=== PATIENT | female | born 1995 | race Caucasian/White ===

== ENCOUNTER 2020-01-02 11:12 | Outpatient (CLI) | payer BC, SELFPAY ==
--- NOTE | ~2020-01-02 | US_ITS ---
EXAMINATION: US pelvic complete w TV EXAM DATE: 01/02/2020 12:14 INDICATION: Cyst on left ovary. Follow-up. TECHNIQUE: Pelvic transabdominal and transvaginal sonogram was performed. There are multiple graysca le and Doppler images available for interpretation. Comparison is made to prior examination from 11/07. FINDINGS: Uterus measures 7.1 x 4.2 x 6.8 cm, and is morphologically normal. Endometrial stripe ivory sures 9 mm, within normal limits. There is no free pelvic fluid. Right adnexa: The ovary measures 2.3 x 1.7 x 1.6 cm and is morphologically normal. Ovarian vascular f low confirmed. Left adnexa: The ovary measures 2.8 x 1.9 x 2.4 cm and is morphologically normal. Previously seen sma ll complex cystic structure was likely hemorrhagic cyst, no longer identified. Ovarian vascular flow confirmed. IMPRESSION: 1. Unremarkable pelvic ultrasound exam. Reviewed, dictated and finalized at location A. BUILDER
== END 2020-01-02 11:13 | disposition home or self-care (01) ==
LOC: ANHIMG 11:14
PROVIDERS: PCP Physician Assistant; Visit Provider Obstetrics & Gynecology
DX: N83.209 Unspecified ovarian cyst, unspecified side (principal)
CPT/HCPCS: 76830; 76856

== ENCOUNTER 2021-02-15 23:05 | Emergency (ER) | payer BC, SELFPAY ==
--- NOTE | ~2021-02-15 | CT_ITS ---
EXAMINATION: CTA chest PE protocol DATE: 02/16/2021 03:55 INDICATION: Chest pain. Elevated d-dimer. TECHNIQUE: Computed tomography (CT) pulmonary angiogram of the chest was performed with 100 mL Omnipa que-350 intravenous contrast. Additional 3D reconstructions utilizing coronal maximum intensity proje ction (MIP) were performed. The dose-length product was 157.56 mGy-cm. COMPARISON: None FINDINGS: Excellent contrast opacification of the pulmonary arteries. There is mild streak artifact from dense contrast in the superior vena cava and right atrium. Mild scattered respiratory motion artifact. Over all this does not limit evaluation which demonstrates no pulmonary embolism. Lungs are clear with no pneumonia or other pulmonary infiltrates, pulmonary edema, pleural effusion or pneumothorax. Heart si ze is normal. No pericardial effusion. There are small thickening along the mid to distal esophagus s uggestive of nonspecific esophagitis. No pathologically enlarged thoracic lymphadenopathy. Visualized upper abdomen is unremarkable. Mild S-shaped curvature of the thoracolumbar spine. IMPRESSION: 1. No pulmonary embolism or other acute cardiopulmonary disease. Reviewed, dictated and finalized at location A.
--- NOTE | ~2021-02-15 | XR_ITS ---
XR chest 2V DATE: 02/15/2021 23:59 INDICATION: Midline chest pain TECHNIQUE: PA and lateral views COMPARISON: 05/21/2017 two-view chest FINDINGS: Bilateral hyperinflation. No pulmonary infiltrate or consolidation, pleural effusion or pul monary vascular congestion or pneumothorax. Normal heart size. No hilar or mediastinal enlargement. Diffuse osteopenia. IMPRESSION: Bilateral hyperinflation; no active cardiopulmonary disease Reviewed, dictated and finalized at location A.
[2021-02-15 23:08] VITALS: BP 135/85; PULSE 113; RESP 20; TEMP 36.6; O2SAT 100
--- NOTE | 2021-02-15 23:12 | ECG_ITS ---
Measurements Intervals [place] Rate: 102 P: 79 [place]: 114 QRS: 89 QRSD: 88 T: -40 QT: 342 QTc: 446 Interpretive Statements SINUS TACHYCARDIA WITH SHORT [place] INTERVAL INCOMPLETE RIGHT BUNDLE BRANCH BLOCK BORDERLINE ST-T WAVE ABNORMALITY- ANTEROLAT/INF LEADS BASELINE ARTIFACT- I, II, III, AVR, AVL, AVF, V1 BORDERLINE ECG Electronically Signed On 02-16-2021 7:36:54 CDT by Fabiano Suggs D.O.
[2021-02-15 23:28] LABS: Basophils Absolute Auto 0.1 K/mm3 (0.0-0.1); Basophils Percent Auto 1.1 % (0.2-1.2); Eosinophils Absolute Auto 0.3 K/mm3 (0-0.3); Eosinophils Percent Auto 3.9 % (0-4.4); Hematocrit 40.5 % (37.0-47.0); Hemoglobin 14.1 g/dL (12.0-15.0); Immature Granulocyte Absolute 0.01 K/mm3 (0.00-0.031); Immature Granulocyte Percent A 0.2 % (0-0.5); Lymphocytes Absolute Auto 2.39 K/mm3 (0.9-3.2); Mean Corpuscular HGB Conc 34.8 g/dl (32-36); Mean Corpuscular Hemoglobin 31.8 pg (26-34); Mean Corpuscular Volume 91.4 fl (80-100); Mean Platelet Volume 9.8 fl (7.4-10.4); Monocytes Absolute Auto 0.5 K/mm3 (0.1-0.6); Monocytes Percent Auto 7.9 % (2.6-8.5); Neutrophils Absolute Auto 3.2 K/mm3 (1.3-6.7); Neutrophils Percent Auto 49.9 % (45.5-73.1); Platelet Count Result 291 k/mm3 (150-375); Red Blood Count 4.43 M/mm3 (4.2-5.4); Red Cell Distribution Width 11.8 % (11.5-14.5); White Blood Count 6.5 K/mm3 (4.5-10.0)
[2021-02-15 23:39] LABS: Prothrombin Time 13.9 Seconds (11.1-14.7)
[2021-02-15 23:40] LABS: Partial Thromboplastin Time 31.5 SECONDS (22.3-36.8)
[2021-02-15 23:42] LABS: Anion Gap 11 mmol/L (8-16); Blood Urea Nitrogen 13 mg/dL (7-17); Calcium 9.6 mg/dL (8.4-10.2); Carbon Dioxide 22 mmol/L (22-30); Chloride 111 mmol/L (98-107); Estimated CRCL calculation 82 ml/min; Estimated Glomerular Filt Rate > 60; Glucose 109 mg/dL (65-105); Sodium 144 mmol/L (137-145)
[2021-02-15 23:53] LABS: Troponin I < 0.012 ng/mL (0.000-0.034)
--- NOTE | 2021-02-16 00:37 | ED.CHESTPAIN ---
HPI - Chest Pain General Chief Complaint: Chest Pain Stated Complaint: Chest pain, migraine Time Seen by Provider: 02/16/21 00:26 Source: RN notes reviewed History of Present Illness HPI narrative: Patient presents to emergency department from home for multiple complaints. Patient states that she was laying in bed this evening approximately 9 PM when she began to feel like her heart was racing. She states she felt lightheaded with this episode. Patient states she does have a history of heart palpitations which she does not feel lightheaded with these normally. Patient also states that she has had a migraine headache all day with throbbing on the right side of her head she states she took her prescription medication at home with no relief states she is taken no Tylenol ibuprofen she denies any vision changes chest pain shortness of breath nausea vomiting or any other symptoms Related Data Home Medications Medication Instructions Recorded Confirmed topiramate 50 mg PO BID 11/28/19 11/28/19 Allergies Allergy/AdvReac Type Severity Reaction Status Date / Time clavulanic acid Allergy Mild HIVES Verified 02/15/21 23:12 Cephalosporins Allergy Unknown HIVES Verified 02/15/21 23:12 codeine Allergy Unknown HIVES Verified 02/15/21 23:12 Penicillins Allergy Unknown HIVES Verified 02/15/21 23:12 Sulfa (Sulfonamide Allergy Unknown HIVES Verified 02/15/21 23:12 Antibiotics) PRIMSOL Allergy Mild HIVES Uncoded 11/28/19 09:07 BETALACTAMASEIN Allergy Unknown HIVES Uncoded 11/28/19 09:07 Review of Systems Review of Systems: Narrative: Gen.: Denies fevers or chills Eyes: Denies eye pain or visual change ENT: Denies congestion Respiratory: Denies shortness of breath or cough CV: Denies chest pain or palpitations GI: Denies abdominal pain nausea, emesis or diarrhea denies chance of Musculoskeletal: Denies back pain or muscle pain Neuro: Denies numbness, tingling, weakness or focal weakness Skin: Denies rash Except as documented, all other systems reviewed and negative [facility] Past Medical History Medical History (Updated 02/16/21 @ 04:29 by Carlos Lauren DO) Anxiety Depression Migraines Osteoporosis UTI (urinary tract infection) Surgical History Surgical History Hx of sinus surgery [place] teeth removed Family History Family History Grandparent Hypertension Cerebrovascular accident Social History Social History Smoking status: Never smoker Alcohol intake: never Gender identity (if verbalized by the patient): Female Exam Narrative: Exam Narrative: APPEARANCE: No acute distress, nontoxic, resting in bed EYES: EOMI, PERRL HEENT: Normocephalic, atraumatic, OMM RESPIRATORY: No respiratory distress Clear to auscultation bilaterally with no rhonchi wheezing or rales. CARDIOVASCULAR: Regular rate and rhythm without murmurs rubs or gallops. ABDOMINAL: Soft, nontender, nondistended, no rebound or guarding MUSCULOSKELETAl: Moves all extremities. No clubbing, cyanosis or edema. NEURO: Awake and alert x 4 Following commands, speech normal, no focal deficits SKIN:: Warm, dry. No rashes lesions or abrasions PSYCHIATRIC: Normal affect/mood, Course Course Emergency Course: Patient remained on awake overnight monitor throughout stay in ED with no arrhythmias noted Patient states headache is resolved at this time Discussed with patient results of workup and diagnosis. Discussed need for follow-up with primary care, proper use of medication, and reasons to return to the emergency department. Patient understands and agrees to current treatment plan Vital Signs Vital signs: Vital Signs Temperature 97.8 F 02/15/21 23:08 Pulse Rate 113 H 02/15/21 23:08 Respiratory Rate 20 02/15/21 23:08 Blood Pressure 135/85 02/15/21 23:08 Pulse Oximetry 1
[2021-02-16 00:50] VITALS: BP 107/70; PULSE 89; RESP 18; O2SAT 100
[2021-02-16] MEDS: SODIUM CHLORIDE 0.9% IV 1,000 ML 999 ML IV CONT (01:27)
[2021-02-16] MEDS: diphenhydrAMINE HCl INJ 50 MG/ML VIAL 25 MG IV PUSH (01:28)
[2021-02-16] MEDS: KETOROLAC 30 MG/ML VIAL (*BKC) IV PUSH (01:29)
[2021-02-16] MEDS: ONDANSETRON INJ 4 MG/2 ML VIAL IV PUSH (01:30)
[2021-02-16 02:46] LABS: D Dimer 0.49 ug/mL (<0.48)
[2021-02-16 02:56] LABS: Troponin I < 0.012 ng/mL (0.000-0.034)
[2021-02-16 05:50] VITALS: BP 105/62; PULSE 92; RESP 18; O2SAT 100
== END 2021-02-16 05:54 | disposition home or self-care (01) ==
PROVIDERS: Emergency Provider Emergency Medicine; PCP Physician Assistant
DX: R00.2 Palpitations (principal); G43.909 Migraine, unspecified, not intractable, without status migrainosus; M81.0 Age-related osteoporosis without current pathological fracture; Z87.440 Personal history of urinary (tract) infections; I45.10 Unspecified right bundle-branch block; R94.31 Abnormal electrocardiogram [ECG] [EKG]
CPT/HCPCS: 36415; 71046; 71275; 80048; 81025; 84484; 85025; 85380; 85610; 85730; 93005; 96361; 96374; 96375; 99284; J1200; J1885; J2405; J7030; Q9967

== ENCOUNTER → 2021-02-22 09:15 | Outpatient (CLI) | payer BC, SELFPAY ==
--- NOTE | ~2021-02-22 | CT_ITS ---
EXAMINATION: CT BRAIN W/O DATE: 02/22/2021 09:32 INDICATION: Migraine headaches TECHNIQUE: Computed tomography (CT) of the head was performed without intravenous contrast. The dose- length product was 524.62 mGy-cm. Automated exposure control and iterative reconstruction technique w ere employed. COMPARISON: No prior studies for comparison. FINDINGS: Normal brain parenchymal volume for age. Normal galo-white differentiation. No acute intrac ranial hemorrhage, infarction, mass or mass effect. No ventriculomegaly or midline shift. Midline sagittal images demonstrate a normal corpus callosum, c raniovertebral junction and sella turcica. Basilar cisterns are patent. Paranasal sinuses and mastoids are pneumatized. No depressed skull fractures. IMPRESSION: 1. No acute intracranial abnormality. Reviewed, dictated and finalized at location B.
== END ==
PROVIDERS: PCP Physician Assistant; Visit Provider Physician Assistant
DX: G43.909 Migraine, unspecified, not intractable, without status migrainosus (principal)
CPT/HCPCS: 70450

== ENCOUNTER → 2021-03-27 12:30 | Outpatient (CLI) | payer BC, SELFPAY ==
--- NOTE | ~2021-03-27 | US_ITS ---
EXAMINATION: US right upper quadrant DATE: 03/27/2021 12:54 INDICATION: Abdominal pain. Nausea. TECHNIQUE: Multiple grayscale and Doppler ultrasound images of the abdomen were obtained. COMPARISON: CT abdomen and pelvis 11/07/2019 FINDINGS: Abdominal aorta is normal in caliber. The visualized portion of the inferior vena cava is n ormal. The visualized portions of the head and body of the pancreas are normal. The liver is normal w ithout focal lesion. There is normal flow in main portal vein. The gallbladder is normal in size. No gallstones or gallbladder wall thickening. There was no sonographic Dietrich sign. The common duct is n ormal and measures 4 mm. Right kidney is normal in size. IMPRESSION: 1. Normal right upper quadrant ultrasound. Reviewed, dictated and finalized at location A.
== END ==
PROVIDERS: PCP Physician Assistant; Visit Provider Physician Assistant
DX: R11.0 Nausea (principal)
CPT/HCPCS: 76705

== ENCOUNTER 2022-04-01 16:24 | Outpatient (CLI) | payer BC, SELFPAY ==
--- NOTE | ~2022-04-01 | US_ITS ---
EXAMINATION: US OB follow up DATE: 04/01/2022 17:35 INDICATION: growth assessment during third trimester TECHNIQUE: Real-time ultrasound of the pelvis was performed. The interpreting radiologist was not pre sent for the study. COMPARISON: None. FINDINGS: There is a single living fetus in vertex presentation. The placenta is anterior. card iac activity and movement are noted. heart rate is 141 beats per minute (bpm). The amniot ic fluid index is 9.7 cm which is normal (normal range: 7.3 cm to 23.9 cm). The following biometric data were obtained: Biparietal diameter (BPD): 9.0 cm; head circumference (HC): 33.6 cm; abdominal circumference (AC): 34 .4 cm; femur length (FL): 7.5 cm. These measurements are concordant. Estimated weight is 3391 g +/- 508 g, which correlates with the 56th percentile when 04/12/2022 is used as estimated date of delivery. As single measurements, these parameters are each equal to the following estimated gestational ages w ith ranges of +/- 2 standard deviations: BPD: 36 weeks 4 days +/- 3 weeks 1 days. HC: 38 weeks 4 days +/- 2 weeks 5 days. AC: 38 weeks 2 days +/- 3 weeks 0 days. FL: 38 weeks 1 days +/- 3 weeks 1 days. estimated gestational age based solely on measurements from this exam is 37 weeks 6 days +/- 2 weeks 5 days. IMPRESSION: 1. Single living fetus in vertex presentation. 2. Normal amniotic fluid index. 3. Estimated weight is 3391 g +/- 508 g, which correlates with the 56th percentile when 04/12/20 22 is used as estimated date of delivery. Reviewed, dictated and finalized at location A. IMPRESSION: 1. Single living fetus in vertex presentation. 2. Normal amniotic fluid index. 3. Estimated weight is 3391 g +/- 508 g, which correlates with the 56th p ercentile when 04/12/2022 is used as estimated date of delivery.
== END 2022-04-01 16:25 | disposition home or self-care (01) ==
PROVIDERS: PCP Physician Assistant; Visit Provider Obstetrics & Gynecology
DX: O36.5933 Maternal care for other known or suspected poor fetal growth, third trimester, fetus 3 (principal); Z3A.37 37 weeks gestation of pregnancy
CPT/HCPCS: 76816

== ENCOUNTER 2022-04-09 00:02 | Inpatient (IN) | payer BC, SELFPAY ==
[2022-04-09] VITALS (157 sets, daily range): BP systolic 80–214; BP diastolic 45–191; PULSE 54–275; RESP 16; TEMP 36.3–37.3; O2SAT 83–100; BMI 28.5
--- NOTE | 2022-04-09 00:30 | LDADM ---
This patient, Francia Ramos, was admitted to Labor/Delivery/Recovery 103 on 04/09/22 at 00:02. Plans for labor, pain management and were discussed with patient. Patient/family oriented to hospital policies and general routines including ID bracelet, bed and alarms, visiting hours, pain management, procedures, bathroom and other care routines, personal items, smoking policy, room service/diet and guest tray routines, infant security routines, and visiting hours. Patient/Family are encouraged to report perceived risks to care and to ask questions if they do not understand what they are told or what they should do. See OBIX for further documentation.
[2022-04-09] MEDS: DINOPROSTONE 10 MG VAG INSERT VAGINAL (01:31)
[2022-04-09 01:39] LABS: Basophils Percent Auto 0.3 % (0.2-1.2); Eosinophils Absolute Auto 0.2 K/mm3 (0-0.3); Eosinophils Percent Auto 2.4 % (0-4.4); Hematocrit 33.1 % (37.0-47.0); Immature Granulocyte Absolute 0.09 K/mm3 (0.00-0.031); Immature Granulocyte Percent A 0.9 % (0-0.5); Lymphocytes Absolute Auto 1.73 K/mm3 (0.9-3.2); Lymphocytes Percent Auto 17.3 % (18.3-44.2); Mean Corpuscular HGB Conc 33.2 g/dl (32-36); Mean Corpuscular Hemoglobin 31.9 pg (26-34); Mean Corpuscular Volume 95.9 fl (80-100); Mean Platelet Volume 10.9 fl (7.4-10.4); Monocytes Absolute Auto 0.8 K/mm3 (0.1-0.6); Monocytes Percent Auto 8.4 % (2.6-8.5); Neutrophils Absolute Auto 7.1 K/mm3 (1.3-6.7); Neutrophils Percent Auto 70.7 % (45.5-73.1); Platelet Count Result 215 k/mm3 (150-375); Red Blood Count 3.45 M/mm3 (4.2-5.4); Red Cell Distribution Width 13.2 % (11.5-14.5)
[2022-04-09] MEDS: LACTATED RINGERS 1,000 ML 125 ML IV CONT ×3 (03:41→21:03)
--- NOTE | 2022-04-09 05:25 | WPDANESEPP ---
Anes - Eval Pre Procedure Date/Time: 04/09/22 05:25 Pre Op Diagnosis: IOL Patient Data Age: 27 Gender: F Height: 1.6 m Weight: 73 kg Last Vital Signs Temp 36.6 C 04/09/22 00:43 Pulse 101 H 04/09/22 02:49 BP 133/77 04/09/22 02:49 Allergies Allergy/AdvReac Type Severity Reaction Status Date / Time clavulanic acid Allergy Mild HIVES Verified 04/03/22 11:39 Cephalosporins Allergy Unknown HIVES Verified 04/03/22 11:39 codeine Allergy Unknown HIVES Verified 04/03/22 11:39 Penicillins Allergy Unknown HIVES Verified 04/03/22 11:39 Sulfa (Sulfonamide Allergy Unknown HIVES Verified 04/03/22 11:39 Antibiotics) PRIMSOL Allergy Mild HIVES Uncoded 04/03/22 11:39 BETALACTAMASEIN Allergy Unknown HIVES Uncoded 04/03/22 11:39 Home Medications Medication Instructions Recorded Confirmed Type docosahexaenoic acid 200 mg capsule mg PO 01/20/22 04/04/22 History mv-min no.[id number] tablet PO 04/09/22 History [Alive Daily Support ] Laboratory Tests 04/09/22 04/09/22 04/09/22 00:42 00:42 00:42 WBC 10.0 K/mm3 K/mm3 (4.5-10.0) RBC 3.45 M/mm3 L M/mm3 (4.2-5.4) Hgb 11.0 g/dL L D g/dL (12.0-15.0) Hct 33.1 % L % (37.0-47.0) MCV 95.9 fl fl (80-100) MCH 31.9 pg pg (26-34) MCHC 33.2 g/dl g/dl (32-36) RDW 13.2 % % (11.5-14.5) Plt Count 215 k/mm3 k/mm3 (150-375) MPV 10.9 fl H fl (7.4-10.4) Immature Gran % (Auto) 0.9 % H % (0-0.5) Neut % (Auto) 70.7 % % (45.5-73.1) Lymph % (Auto) 17.3 % L % (18.3-44.2) Miller % (Auto) 8.4 % % (2.6-8.5) Eos % (Auto) 2.4 % % (0-4.4) Baso % (Auto) 0.3 % % (0.2-1.2) Lymph # (Auto) 1.73 K/mm3 K/mm3 (0.9-3.2) Miller # (Auto) 0.8 K/mm3 H K/mm3 (0.1-0.6) Eos # (Auto) 0.2 K/mm3 K/mm3 (0-0.3) Baso # (Auto) 0.0 K/mm3 K/mm3 (0.0-0.1) Abs Immat Gran (auto) 0.09 K/mm3 H K/mm3 (0.00-0.031) Absolute Neuts (auto) 7.1 K/mm3 H K/mm3 (1.3-6.7) Absolute Nucleated RBC 0.0 K/mm3 K/mm3 (0.0-0.012) Nucleated RBC % 0.0 % % (0.0-0.2) RPR Pending Blood Type O Positive Antibody Screen Negative Patient hx anesthesia problems: none Family hx anesthesia problems: none Results Review: All pre-operative results and documents have been reviewed as part of the pre-operative evaluation. [facility] Past Medical History Medical History Anxiety Depression Migraines Osteoporosis UTI (urinary tract infection) Surgical History Surgical History Hx of sinus surgery [place] teeth removed Family History Family History Grandparent Hypertension Cerebrovascular accident Social History Social History Smoking status: Never smoker Second hand tobacco smoke exposure: No Alcohol intake: never Substance use: never Gender identity (if verbalized by the patient): Female Spiritual care concerns: No Exam Day of Procedure 04/09/22 05:25 Patient weight: overweight Heart: regular rate and rhythm Lungs: normal air movement Airway: Mallampati scale Neurological: alert and oriented
[2022-04-09 07:03] LABS: Rapid Plasma Reagin Non-Reactive (NonReactive)
--- NOTE | 2022-04-09 11:56 | PM.IMHP ---
H&P: HPI History of Present Illness Date/Time: 04/09/22 11:56 Patient G 1 at 39 weeks by LMP 07/06/2021 with an EDC 04/12/2022 consistent with a 9 week ultrasound. She presented for MIL. PNC uncomplicated. Labs reviewed. GBS neg. Chief Complaint: Induction of labor. Review of Systems Review of Systems: All systems reviewed & are unremarkable except as noted in HPI and below Constitutional: Constitutional: Reports no additional constitutional complaints and Denies headache(s) Eyes: Eyes: Denies spots in vision ENT: Reports system reviewed and no additional complaints, except as documented and Denies headache(s) Cardiovascular: Cardiovascular: Denies chest pain and Denies dyspnea Respiratory: Respiratory: Denies dyspnea Gastrointestinal: Gastrointestinal: Reports no additional gastrointestinal complaints Genitourinary: Genitourinary: Reports amenorrhea Musculoskeletal: Musculoskeletal: Reports no additional musculoskeletal complaints Neurologic: Denies headache(s) Psychiatric: Psychiatric: Reports no additional psychiatric complaints PMFSH Past Medical History Medical History Anxiety Depression Migraines Osteoporosis UTI (urinary tract infection) Surgical History Surgical History Hx of sinus surgery [place] teeth removed Family History Family History Grandparent Hypertension Cerebrovascular accident Social History Social History Smoking status: Never smoker Second hand tobacco smoke exposure: No Alcohol intake: never Substance use: never Gender identity (if verbalized by the patient): Female Spiritual care concerns: No Meds Home Medications and Allergies Home Medications Medication Instructions Recorded Confirmed Type docosahexaenoic acid 200 mg capsule 200 mg PO DAILY 01/20/22 04/09/22 History mv-min no.[id number] 1 tablet PO DAILY 04/09/22 04/09/22 History [Alive Daily Support ] Allergies Allergy/AdvReac Type Severity Reaction Status Date / Time clavulanic acid Allergy Mild HIVES Verified 04/03/22 11:39 Cephalosporins Allergy Unknown HIVES Verified 04/03/22 11:39 codeine Allergy Unknown HIVES Verified 04/03/22 11:39 Penicillins Allergy Unknown HIVES Verified 04/03/22 11:39 Sulfa (Sulfonamide Allergy Unknown HIVES Verified 04/03/22 11:39 Antibiotics) PRIMSOL Allergy Mild HIVES Uncoded 04/03/22 11:39 BETALACTAMASEIN Allergy Unknown HIVES Uncoded 04/03/22 11:39 Vital Signs Vital Signs - 24 hr 04/09/22 00:28 04/09/22 00:43 04/09/22 01:45 Temperature 97.8 F Pulse Rate 106 H 86 Blood Pressure 123/77 112/58 L 04/09/22 02:00 04/09/22 02:15 04/09/22 02:30 Temperature Pulse Rate 84 82 122 H Blood Pressure 111/73 121/71 129/81 04/09/22 02:45 04/09/22 02:49 04/09/22 05:37 Temperature Pulse Rate 78 101 H 101 H Blood Pressure 112/68 133/77 113/71 04/09/22 07:29 04/09/22 07:53 04/09/22 11:51 Temperature 97.3 F L Pulse Rate 62 94 Blood Pressure 102/47 L 112/57 L Exam Const: General: no acute distress Eyes: General: appearance normal, both eyes and all related structures Resp: Effort & Inspection: normal respiratory effort Cardio: Rate: regular rate GI: Other: Gravid no fundal tenderness no right upper quadrant pain : External Female Exam: normal external appearance Other: cl/30/-2 Skin: General skin exam: no rashes or lesions noted Neuro: Cognition (Neuro): normal cognition Extrem: General: normal to inspection Psych: Mental Status: mental status grossly normal H&P: Results Labs Labs: Short CBC 04/09/22 Range/Units 00:42 WBC 10.0 (4.5-10.0) K/mm3 Hgb 11.0 L D (12.0-15.0) g/dL Hct 33.1 L (37.0-47.0) % Plt Count 215 (150-375) k/mm3 Assess
[2022-04-09] MEDS: OXYTOCIN 30 UNITS/NS 500 ML 30 UNITS/500 ML BAG 6 UNITS IV CONT (13:48)
[2022-04-09] MEDS: PHENYLEPHRINE 1,000 MCG/10 ML SYRINGE 100 MCG IV PUSH (19:09)
[2022-04-09] MEDS: LIDOCAINE HCL 1% LOCAL INJ 10 ML VIAL (23:35)
[2022-04-10] VITALS (44 sets, daily range): BP systolic 80–118; BP diastolic 43–73; PULSE 70–110; RESP 16–18; TEMP 36.4–36.9; O2SAT 94–100
[2022-04-10] MEDS: OXYTOCIN 30 UNITS/NS 500 ML 30 UNITS/500 ML BAG 125 UNITS IV CONT
--- NOTE | 2022-04-10 00:08 | PM.OBPRVD ---
OB - Delivery Note Procedure Delivery date: 04/09/22 Procedure: Spontaneous vaginal delivery Induction method: Per Misoprostol Protocol Delivery augmentation: Rupture of Membranes (AROM clear) and Pitocin Delivery monitor: External FHT Route of delivery: Episiotomy description: Left Mediolateral Delivery repair: vicryl (3.0 vicryl) Specimen: No Quantitative Blood Loss (ml): 300 Anesthesia type: Epidural Disposition: Floor Complications: None Narrative: Patient admitted for MIL with cervidil in 04/09/2022. She had cervidil and then Pitocin started afternoon of 04/09/2022 after cervidil removed. She had AROM clear fluid at approximately 1645. She received epidural upon request. She progressed to active labor. She delivered a female over left mediolateral episiotomy which was performed due to small outlet. Infant's nose mouth suctioned with bulb at perineum. Infant vigorously crying and placed on maternal abdomen. Delayed cord clamping for 45 seconds until placenta apulsatile. Cord blood and cord gases obtained. Placenta delivered spontaneously and intact. Episiotomy repaired with 3.0 vicryl. [place] Baby Date of : 04/09/22 Time of : 23:26 Weeks of gestation at delivery: 39 gender: Female Weight (pounds): 7 Weight (ounces): 13 presentation: vertex position: Right Occiput Anterior Placenta delivery description: Spontaneous Cord Vessel Description: 3 Vessels, Clamped/Cut and Delayed Cord Clamping score one minute: 8 score five minutes: 9 AMG Delivery Billing Delivery Delivery: Delivery Charge
[2022-04-10] MEDS: WITCH HAZEL 40 PADS 1 PAD TOPICAL (02:34)
[2022-04-10] MEDS: BENZOCAINE 20% AER SPR (*SP) 56 GM CAN 1 SPRAY TOPICAL (02:34)
--- NOTE | 2022-04-10 02:48 | OBPPTRN ---
Patient transferred to post room #290 via wheelchair. Support person present. Oriented to unit, room, information board, rooming in, admission packet and security measures. Patient verbalizes understanding.
[2022-04-10 05:19] LABS: Hematocrit 32.3 % (37.0-47.0); Hemoglobin 10.9 g/dL (12.0-15.0)
[2022-04-10] MEDS: IBUPROFEN 600 MG TABLET PO ×2 (07:37→14:56)
--- NOTE | 2022-04-10 09:54 | WPDANLDPN2 ---
Anes-Prog Note L&D Date/Time: 04/10/22 09:54 Comfortable throughout: labor and delivery Neuraxial method: epidural Epidural/Spinal procedure site: clean & non-tender Neuro status: Neuro function grossly intact. Cardiovascular status: normal Respiratory status: normal Airway patency: baseline Mental status: baseline Post-Op hydration status: normal Vital Signs: Last Vital Signs Temp 36.7 C 04/10/22 07:36 Pulse 92 04/10/22 07:36 Resp 16 04/10/22 07:36 BP 112/73 04/10/22 07:36 Pulse Ox 99 04/10/22 07:36 Pain score (VAS): 12/09 I/O: Intake & Output 04/09/22 04/10/22 04/10/22 23:59 07:59 15:59 Intake Total 1000 500 Output Total 450 Balance 1000 50 Post-procedural complaints: none Patient feedback: Patient satisfied with anesthetic care.
[2022-04-10] MEDS: MULTIVIT/MIN/PREN/FOL AC/IRON TABLET 1 TAB PO (10:02)
[2022-04-10] MEDS: ACETAMINOPHEN 325 MG TABLET 650 MG PO (10:02)
--- NOTE | 2022-04-10 11:19 | PC.NURSE ---
Patient viewed the discharge video Mother & Baby Care, The First Two Weeks . Patient was given the opportunity and encouraged to ask questions. Patient verbalized understanding of information shared and has been given the mother/baby guide for home reference.
--- NOTE | 2022-04-10 13:04 | PM.OBPNVD ---
OB - PN: Subj Subjective Date/time seen: 04/10/22 13:04 Patient comments: pain well controlled, tolerating diet and other (Decreasing lochia.) baby status: doing well and nursing well OB - PN: Obj Data Labs CBC & Chem 7: 04/10/22 05:06 Labs: Laboratory Results - last 24 hr 04/10/22 05:06 Hgb 10.9 L Hct 32.3 L OB - PN A/P Plan day: 1 Plan: routine care Comments: Patient doing well. Continue routine care. Time Spent With Patient Time: Total time spent is greater than 50% in coordination of care (as documented) at patient's floor/unit and/or counseling patient: Exam Psych: Affect: normal affect Other: Abd: fundus firm below umbilicus, nontender Perineum: healing Ext: nontender
[2022-04-11] MEDS: IBUPROFEN 600 MG TABLET PO ×2 (00:16→08:52)
[2022-04-11 07:40] VITALS: BP 103/65; PULSE 68; RESP 18; TEMP 36.4; O2SAT 100
[2022-04-11] MEDS: MULTIVIT/MIN/PREN/FOL AC/IRON TABLET 1 TAB PO (08:52)
--- NOTE | 2022-04-11 09:32 | PM.OBPNVD ---
OB - PN: Subj Subjective Date/time seen: 04/11/22 09:32 She states she feels well. Has adequate pain control. No leg pain. Bottle feeding. Patient comments: pain well controlled, tolerating diet and other (Decreasing lochia.) baby status: doing well and nursing well OB - PN: Obj Data Labs CBC & Chem 7: 04/10/22 05:06 OB - PN A/P Plan day: 2 Plan: discharge home and other Comments: Patient doing well. Follow up 4-6 weeks. Discharge instructions provided. Time Spent With Patient Time: Total time spent is greater than 50% in coordination of care (as documented) at patient's floor/unit and/or counseling patient: Time with patient: less than 15 minutes Exam Const: General: comfortable and no acute distress Eyes: General: appearance normal, both eyes and all related structures Resp: Effort & Inspection: normal respiratory effort Extrem: General: normal to inspection Other: tr edema bilat nontender bilat Psych: Affect: normal affect Other: Abd: fundus firm below umbilicus, nontender Perineum: healing Ext: nontender
--- NOTE | 2022-04-11 09:34 | PM.OBDSVD ---
DS: Admitting Diagnosis Discharge Date 04/11/2022 Admitting Diagnosis Medical induction of labor DS: Discharge Diagnosis Discharge Diagnosis (1) Elective induction of labor planned: Status: Acute (2) Delivery normal: Code(s): O80 - Encounter for full-term uncomplicated delivery Status: Acute OB - DS: Summary Hospital Course Hospital Course: Patient admitted for MIL. She had cervidil placed and then Pitocin. She had an uncomplicated vaginal delivery. she did well. She had adequate pain control, decrease lochia. Baby was doing well. She was discharged to home on day 2. Discharge instructions discussed. OB Procedures : Ultrasound OB Procedures Intrapartum: Spontaneous Vag Delivery OB Procedures: : None Peripartum Data Delivery Method: Natural Vaginal Episiotomy description: Left Mediolateral complications: none Status at Discharge Functional status at discharge: independent ambulation Time Spent with Patient Time attestation: Total time spent providing and/or coordinating discharge services: Exam Const: General: cooperative Orientation/consciousness: oriented to person, oriented to place and oriented to time HENMT: General nose exam: Normal external nose present Eyes: General: appearance normal, both eyes and all related structures Resp: Effort & Inspection: normal respiratory effort GI: Inspection: normal to inspection Skin: General skin exam: normal color Neuro: General: oriented to person, oriented to place and oriented to time Extrem: General: normal to inspection and no calf tenderness Psych: Appearance: grossly normal Mental Status: mental status grossly normal Discharge Plan Discharge Attending physician on discharge: Jermaine Bernal Consulting providers: Christy Calderon Discharging Clinician: Jermaine Bernal Anticipated Discharge Date/Time: 04/11/22 09:37 Patient Disposition: Home, Self-Care Activity: may shower, no straining and pelvic rest Diet: regular Discharge Instructions: Pelvic rest for 4-6 weeks. May take over the counter Ibuprofen or Tylenol for pain. Call if saturating more than a pad an hour, leg redness, pain and swelling, temperature>100.4. No strenuous activity. Patient Instructions: Antibiotic Form Stand Alone Forms: General Discharge Information Follow-up/Referrals: Jermaine Bernal MD [Physician] - 2 Weeks (Call for appointment) Discharge Medications: No Action DHA 200 mg capsule 200 mg PO DAILY RF: 0 Alive Daily Support 180 mcg-25 mg- 25 mg Tablet,Chewable 1 tablet PO DAILY RF: 0 Date of admission: 04/09/22 00:02 Primary Care Provider: Nikia Chairez Admitting Provider: Jermaine Bernal Attending physician on admission: Jermaine Bernal Condition: Stable
[2022-04-12 08:46] VITALS: BP 120/72; PULSE 68; RESP 18; TEMP 36.9; O2SAT 100
== END 2022-04-11 12:20 | disposition home or self-care (01) | DRG 560 ==
LOC: ANHLDR 00:07 → ANHOB2 04-10 02:49
PROVIDERS: Admitting Provider Obstetrics & Gynecology; PCP Physician Assistant; Visit Provider Obstetrics & Gynecology
DX: O76 Abnormality in fetal heart rate and rhythm complicating labor and delivery (principal); Z37.0 Single live birth; Z3A.39 39 weeks gestation of pregnancy
CPT/HCPCS: 36415; 85014; 85018; 85025; 86592; 86850; 86900; 86901; A9270; J2370; J2590; J2795; J7120

== ENCOUNTER 2022-07-09 16:07 | Outpatient (CLI) | payer OTHER, SELFPAY ==
--- NOTE | ~2022-07-09 | XR_ITS ---
EXAM: XR thoracic spine 3V DATE: 07/09/2022 16:29 HISTORY: M54.6 - Pain in thoracic spine;fell 11/2021, 3 mos . COMPARISON: DEXA scan 09/26/2019. FINDINGS: Thoracolumbar scoliosis. Decreased mineralization. Vertebral body alignment intact. Multile roxanne vertebral body height loss in the mid and upper thoracic spine, precise levels are difficult to d etermine in this examination. Multilevel concave endplate deformities. Multilevel mild disc space chen rowing and marginal osteophytosis. No traumatic malalignment or fracture. Visualized lung parenchyma is clear. IMPRESSION: Osteopenia greater than expected for age, with osteoporotic type endplate defects consist ent with known diagnosis of osteoporosis. Mild multilevel vertebral body height loss in the mid and u pper thoracic spine concerning for mild degenerative body compression fractures. Correlate with pain/ tenderness. Reviewed, dictated and finalized at location K. IMPRESSION: Osteopenia greater than expected for age, with osteoporotic type en dplate defects consistent with known diagnosis of osteoporosis. Mild multilevel vertebral body height loss in the mid and upper thoracic spine concerning for mild degenerative body compression fractures. Correlate with pain/tenderness.
== END 2022-07-09 16:08 | disposition home or self-care (01) ==
PROVIDERS: PCP Family Medicine Adolescent Medicine; Visit Provider Physician Assistant
DX: M54.6 Pain in thoracic spine (principal); M85.88 Other specified disorders of bone density and structure, other site
CPT/HCPCS: 72072

== ENCOUNTER 2023-03-01 10:18 | Emergency (ER) | payer BC, SELFPAY ==
[2023-03-01 10:22] VITALS: BP 120/68; PULSE 87; RESP 18; TEMP 36.7; O2SAT 100
[2023-03-01] MEDS: ONDANSETRON INJ 4 MG/2 ML VIAL IV PUSH (11:17)
[2023-03-01] MEDS: SODIUM CHLORIDE 0.9% IV 1,000 ML 999 ML IV CONT ×2 (11:17→12:50)
[2023-03-01] MEDS: KETOROLAC 30 MG/ML VIAL (*BKC) IV PUSH (11:18)
[2023-03-01 12:20] VITALS: BP 107/67; PULSE 110; RESP 18; O2SAT 99
[2023-03-01 12:23] LABS: Appearance Urine Clear (Clear); Bilirubin Urine 1+ (Negative); Blood Urine 2+ (Negative); Color Urine Yellow (Yellow); Glucose Urine UA Negative (Negative); Ketones Urine 2+ (Negative); Leukocyte Esterase Ur Negative LEU/UL (Negative); Nitrate Urine Negative (Negative); Protein Urine Trace (Negative); Specific Grav Ur 1.025 (1.010-1.020); Urobilinogen Urine 0.2 mg/dL (0.2-1.0)
[2023-03-01 12:24] LABS: Influenza A QL RT-PCR Negative (Negative); Influenza B QL RT-PCR Negative (Negative); SARS-CoV-2 RNA PCR Negative (Negative)
[2023-03-01 12:31] LABS: Add Urine Microscopic? YES; Amorphous Sediment Urine Moderate; Bacteria Urine 1+ /hpf; Mucus Urine Heavy /lpf; Squamous Epithelial Cell Urine Few /hpf (Few)
[2023-03-01 12:35] LABS: Pregnancy On Board Control Positive; Urine Pregnancy Test Negative
--- NOTE | 2023-03-01 12:39 | ED.NAVMDI ---
HPI - Nausea/Vomiting/Diarrhea General Chief complaint: Headache Stated complaint: Migraine Time Seen by Provider: 03/01/23 10:40 Source: patient Mode of arrival: ambulatory Limitations: no limitations History of Present Illness HPI Narrative: 28 year old female presents to the Emergency Department complaining of nausea, vomiting, diarrhea. Onset 02/27. has been taking Immodium. has developed migraine headache. has taken her home migraine medications without relief. Denies any fever, cough, congestion. States urine is decreased and darker. Denies any foreign travel, camping. Denies anyone else ill around her except her child did have recently before. MD elicited complaint: nausea, vomiting and diarrhea Onset (ago): day(s) (2 days ago) Description of diarrhea: watery Associated nausea: Yes Associated abdominal pain: No Exacerbating factors: none Relieving factors: none Associated symptoms: headaches, nausea/vomiting, weakness and decreased urine output Treatment prior to arrival: immodium Related Data Home Medications Medication Instructions Recorded Confirmed mv-mn no.97-folic 180 mcg-dha 25 1 tablet PO DAILY 04/09/22 03/01/23 mg-herb no.293 25 mg chewable tablet (Alive Daily Support ) Allergies Allergy/AdvReac Type Severity Reaction Status Date / Time clavulanic acid Allergy Mild HIVES Verified 03/01/23 11:31 Cephalosporins Allergy Unknown HIVES Verified 03/01/23 11:31 codeine Allergy Unknown HIVES Verified 03/01/23 11:31 Penicillins Allergy Unknown HIVES Verified 03/01/23 11:31 Sulfa (Sulfonamide Allergy Unknown HIVES Verified 03/01/23 11:31 Antibiotics) PRIMSOL Allergy Mild HIVES Uncoded 03/01/23 11:31 BETALACTAMASEIN Allergy Unknown HIVES Uncoded 03/01/23 11:31 Review of Systems Review of Systems: All systems reviewed & are unremarkable except as noted in HPI and below Constitutional: Constitutional: Reports as per HPI, Reports no additional constitutional complaints, Reports headache(s), Reports lethargy and Reports weakness Eyes: Eyes: Reports as per HPI and Reports no additional eye complaints ENT: Reports system reviewed and no additional complaints, except as documented Cardiovascular: Cardiovascular: Reports as per HPI and Reports no additional cardiovascular complaints Respiratory: Respiratory: Reports as per HPI and Reports no additional respiratory complaints Gastrointestinal: Gastrointestinal: Reports as per HPI, Reports no additional gastrointestinal complaints, Reports diarrhea, Reports nausea and Reports vomiting Genitourinary: Genitourinary: Reports no additional female genitourinary complaints Comments: decreased urination and darker in color Musculoskeletal: Musculoskeletal: Reports no additional musculoskeletal complaints and Reports as per HPI Integumentary/Breasts: Skin/Breast: Reports system reviewed and no additional complaints, except as docu and Reports as per HPI Neurologic: Reports system reviewed and no additional complaints, except as documented, Reports as per HPI and Reports weakness Psychiatric: Psychiatric: Reports no additional psychiatric complaints Endocrine: Endocrine: Reports no additional endocrine complaints Hematologic/Lymphatic: Hematologic/Lymphatic: Reports no additional hematologic/lymphatic complaints Allergic/Immunologic: Allergic/Immunologic: Reports no additional allergic/immunologic complaints PMFSH Past Medical History Medical History Anxiety Migraines Osteoporosis Vaginal delivery Surgical History Surgical History Hx of sinus surgery [place] teeth removed Family History Family History Grandparent Hypertension Cerebrovascular accident Father Asthma Sibling Asthma Depression Mother Hypertension Social History Social History (Re
[2023-03-01] MEDS: METOCLOPRAMIDE HCL INJ 10 MG/2 ML VIAL IV PUSH (12:47)
[2023-03-01] MEDS: LORazepam INJ (*CRX) 2 MG/ML VIAL 1 MG IV PUSH (12:48)
[2023-03-01 14:10] VITALS: BP 104/66; PULSE 105; RESP 16; O2SAT 100
== END 2023-03-01 14:39 | disposition home or self-care (01) ==
PROVIDERS: Emergency Provider Emergency Medicine
DX: K52.9 Noninfective gastroenteritis and colitis, unspecified (principal); E86.0 Dehydration; R51.9 Headache, unspecified; Z20.822 Contact with and (suspected) exposure to COVID-19
CPT/HCPCS: 81001; 81025; 87636; 96361; 96374; 96375; 99284; J1885; J2060; J2405; J2765; J7030

== ENCOUNTER 2023-05-13 09:39 | Outpatient (CLI) | payer BC, SELFPAY ==
--- NOTE | ~2023-05-13 | US_ITS ---
US abdomen limited INDICATION: Abdominal pain PROCEDURE: Realtime right upper abdominal ultrasound. COMPARISON: No prior studies for comparison. FINDINGS: The pancreas is normal without focal mass or pancreatic ductal dilation. Liver echotexture is normal without focal mass or intrahepatic biliary dilatation. There is normal directional flow i n the portal vein. The gallbladder is normal without stones, gallbladder wall thickening or pericholecystic fluid. Comm on bile duct measures 4 mm. No sonographic Dietrich's sign. IMPRESSION: 1: Normal limited abdominal ultrasound. Reviewed, dictated and finalized at location L.
== END 2023-05-13 09:40 | disposition home or self-care (01) ==
LOC: ANHIMG 18:04
PROVIDERS: PCP Family Medicine; Visit Provider Physician Assistant
DX: R10.9 Unspecified abdominal pain (principal)
CPT/HCPCS: 76705

== ENCOUNTER 2024-06-02 18:15 | Emergency (ER) | payer BC, SELFPAY ==
[2024-06-02 18:15] VITALS: BP 134/92; PULSE 125; RESP 22; TEMP 36.6; O2SAT 100
[2024-06-02] MEDS: SODIUM CHLORIDE 0.9% IV 1,000 ML 999 ML IV CONT (18:37)
[2024-06-02] MEDS: KETOROLAC 30 MG/ML VIAL (*BKC) IV PUSH (18:38)
--- NOTE | 2024-06-02 18:40 | ED.HA ---
HPI - Headache General Chief Complaint: Headache Stated Complaint: headache Time Seen by Provider: 06/02/24 18:20 Source: patient and family Mode of arrival: ambulatory Limitations: no limitations History of Present Illness HPI Narrative: Is 21 year female with a history of migraine headaches and TMJ presents with migraine headache left-sided throbbing pulsatile light sensitive and noise sensitive, he has tried her [id number] medications tripped hands with minimal relief. Patient denies any fever chills currently no nausea vomiting or abdominal pain no diarrhea constipation no chest pain or shortness of breath. MD elicited complaint: headache and migraine Pertinent past history: migraines Onset (ago): day(s) Onset description: gradually Location: left Severity: moderate Pain scale (0-10): 8 Quality & Timing: throbbing Exacerbating factors: light and noise Relieving factors: rest and prescription medication Related Data Allergies Allergy/AdvReac Type Severity Reaction Status Date / Time clavulanic acid Allergy Mild HIVES Verified 02/10/24 11:07 Cephalosporins Allergy Unknown HIVES Verified 02/10/24 11:07 codeine Allergy Unknown HIVES Verified 02/10/24 11:07 Penicillins Allergy Unknown HIVES Verified 02/10/24 11:07 Sulfa (Sulfonamide Allergy Unknown HIVES Verified 02/10/24 11:07 Antibiotics) PRIMSOL Allergy Mild HIVES Uncoded 02/10/24 11:07 BETALACTAMASEIN Allergy Unknown HIVES Uncoded 02/10/24 11:07 Review of Systems Review of Systems: All systems reviewed & are unremarkable except as noted in HPI and below PMFSH Past Medical History Medical History Anxiety Attention deficit disorder Depression Migraines Osteoporosis Surgical History Surgical History Hx of sinus surgery septoplasty, bilateral submucous resection turbinates 12/31/2017 functional sinus procedure with fusion 12/01/2019 [place] teeth removed Family History Family History Grandparent Hypertension Cerebrovascular accident Father Asthma Sibling Asthma Depression Mother Hypertension Social History Social History Smoking status: Never smoker Second hand tobacco smoke exposure: Yes Alcohol intake: never Substance use: never Substance use type: does not use Lack of Transportation: No Lack of Food: Never True Current Housing: I Have Housing Concerned About Future Housing: No Difficulty Paying Gas/Electric Bills: No Difficulty Paying for Meds: No Currently Unemployed: No Education: High School Diploma/GED Living arrangements: with family Occupation/Education: occupation Gender identity (if verbalized by the patient): Female Sexual Orientation (if Verbalized by the Patient): Straight or Heterosexual Spiritual care concerns: No Agree to blood products: Yes Exam Const: General: healthy appearing, no acute distress and alert Nutritional Appearance: well nourished Orientation/consciousness: patient oriented x3 Limitations: no limitations HENMT: Head: normal to inspection Eyes: Conjunctivae: conjunctivae normal Pupils: Equal, round and reactive pupils present EOM: EOMs intact bilaterally Neck: Neck: normal visual inspection, no lymphadenopathy and no meningeal signs Chest: Chest palpation & inspection: normal inspection of the chest Resp: Effort & Inspection: normal respiratory effort Auscultation: clear to auscultation bilaterally Cardio: Rate: regular rate Rhythm: regular rhythm GI: GI Palp: Yes Soft to palpation Auscultation: normal bowel sounds Neuro: General: patient oriented x3, moves all extremities, no meningeal signs and no focal motor deficits Course Course Emergency Course: Patient received IV fluids and IV Toradol and after reassessment kristen
--- NOTE | 2024-06-02 18:55 | PC.NURSE ---
assumed care. report received from Herman TELLES.
--- NOTE | 2024-06-02 18:56 | PC.NURSE ---
pt report to ELFEGO bedolla.
--- NOTE | 2024-06-02 19:00 | PC.NURSE ---
patient resting on stretcher. reports that her headache is starting to get better. it still hurts but not like when i came in . iv fluids continue to infuse. site without redness or swelling. call light is in reach. mother at her side
--- NOTE | 2024-06-02 19:04 | PC.NURSE ---
Dr Licona at the bedside.
[2024-06-02 19:19] VITALS: BP 128/88; PULSE 90; RESP 18; O2SAT 100
== END 2024-06-02 19:20 | disposition home or self-care (01) ==
PROVIDERS: Emergency Provider Emergency Medicine; PCP Family Medicine
DX: G43.909 Migraine, unspecified, not intractable, without status migrainosus (principal)
CPT/HCPCS: 96361; 96374; 99284; J1885; J7030